=== PATIENT | female | born 1955 | race Caucasian/White ===

== ENCOUNTER → 2016-12-31 | Outpatient (CLI) | payer MEDICARE ==
[~2016-12-31] MED LIST: ALDACTONE25 M1 PO; ASPIRIN ADULT L81 M1 PO; COUMADIN1 M1 PO; COUMADIN2.5 M1 PO; DIGITEK0.125 MG PO; DUONEB 3 MG/3 ML3 M1 INH; IBUPROFEN600 MG PO; LISINOPRIL5 MG PO; OXYGEN NAS; SIMVASTATIN10 MG PO; TOPROL XL25 MG PO; UNASYN 3GM3 GM/100 M IV; XANAX0.25 MG PO; [UNRECOGNIZED DRUG - OTHER] IV
== END | disposition home or self-care (01) ==
LOC: LAB 15:40
DX: J44.9 Chronic obstructive pulmonary disease, unspecified (principal)

== ENCOUNTER → 2017-09-27 | Outpatient (CLI) | payer MEDICARE ==
[2017-09-27 10:35] LABS: CHOLESTEROL 178 mg/dL (<200); HDL CHOLESTEROL 65 mg/dl (40-60); LDL CHOLESTEROL 79 mg/dL (9-159); TRIGLYCERIDES 170 mg/dl (<150); VLDL CHOLESTEROL 34 mg/dL (6-40)
== END | disposition home or self-care (01) ==
LOC: LAB 09:35
PROVIDERS: Internal Medicine Cardiovascular Disease
DX: E78.5 Hyperlipidemia, unspecified (principal)

== ENCOUNTER 2017-11-09 14:03 | Inpatient (IN) | payer OTHER, MEDICARE ==
[~2017-11-09] VITALS: Ht 160 cm; Wt 55.5 kg
--- NOTE | ~2017-11-09 | PR ---
[place], [place] PROGRESS NOTE NAME: [facility] [id number] UNIT #: [id number] ROOM: [facility] DOCTOR: ASIM MON MD BIRTHDATE: [birth year] DOS: 11/15/2017 SUBJECTIVE: The patient examined in the Intensive Care Unit. The patient is on BiPAP. She appears to be comfortable. The patient is staying in sinus rhythm. No more atrial fibrillation at this point. They were not able to do any biopsy yesterday because of her significant orthopnea. OBJECTIVE: VITAL SIGNS: Blood pressure today is 129/50. HEENT: Unremarkable. NECK: Supple. Elevated JVD. LUNGS: Diminished breath sounds. She is not wheezing today. Extremely diminished air entry. HEART: Sounds are regular. ABDOMEN: Soft, nontender. REVIEW OF SYSTEMS: Not performed because of the critical nature of the patient. LABORATORY DATA: Shows hemoglobin 10, hematocrit 34.1. Sodium 139, potassium 4.2, creatinine is 0.5. INR is 1. IMPRESSION: Respiratory failure with possible lung mass, bronchopneumonia, septicemia, atrial fibrillation, paroxysmal back into sinus rhythm, severe cardiomyopathy with an ejection fraction of 25% with severe mitral regurgitation. RECOMMENDATIONS: Paroxysmal atrial fibrillation in sinus rhythm, severe LV dysfunction. 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 for about a couple of days and then change it to 200 daily. If she has recurrent AFib, we might have to anticoagulate. CHADS score is very high and we will follow up. ASIM MON MD CM:PNKARY [id number] ASIM MON MD 11/15/17 2246 interface
--- NOTE | ~2017-11-09 | CON ---
[place], [place] REPORT OF CONSULTATION NAME: ARIANE GARCIA [facility] #: [id number] UNIT #: [id number] ROOM: [facility] DOCTOR: ASIM MON MD BIRTHDATE: [birth year] DOS: 11/11/2017 Patient examined in the Intensive Care Unit. HISTORY OF PRESENT ILLNESS: A 62-year-old patient with chest discomfort and known history of coronary artery disease. A 62-year-old female who has been a patient of Dr. Navas for COPD, presented to the hospital for symptoms of having increased shortness of breath. The patient has a history of previous endocarditis. The patient went [facility], was sent to the Emergency Room for reassessment to assess shortness of breath and reported symptoms of nonspecific chest pain associated with chills, dizziness, and lightheadedness. The patient has been assessed. Denies symptoms of hemoptysis. The patient has a suspected acute pneumonia, admitted ____ in the Emergency Room, a CT scan of the chest was done, showed the patient reported with a finding of a lung mass. The patient was seen by Dr. Navas for the same for the patient. Symptoms started with a pain in the mouth and thought she has an infection of the mouth. REVIEW OF SYSTEMS: CONSTITUTIONAL: No fever, no chills. Complains of fatigue and tiredness. HEENT: No visual disturbances, hearing problems. CARDIOVASCULAR: Denies any chest discomfort. RESPIRATORY: Positive for shortness of breath. GENITOURINARY: No dysuria, hematuria. PAST MEDICAL HISTORY: End-stage chronic obstructive pulmonary disease, chronic respiratory failure, hypercholesterolemia, hypertension, congestive heart failure, cardiomyopathy, anxiety, and peripheral arterial disease. PAST SURGICAL HISTORY: Hip arthroscopy, cardiac catheterization, appendectomy, and fem-pop bypass surgery. SOCIAL HISTORY: The patient denies any alcohol abuse or drug abuse. No history of tobacco abuse, started at the age of [age] years old. FAMILY HISTORY: Positive for coronary artery disease. MEDICATIONS: Digoxin, simvastatin, Solu-Medrol, Rocephin, Zithromax and p.r.n. medication. DRUG ALLERGIES: None. PHYSICAL EXAMINATION: A 62-year-old patient in sinus rhythm. VITAL SIGNS: Blood pressure is 89/60. NECK: Supple, elevated JVD. LUNGS: Diminished breath sounds bilaterally with positive rhonchi and crackles. ABDOMEN: Soft, nontender. EXTREMITIES: About 1+ edema. NEUROLOGIC: Stable. LABORATORY DATA: Shows hemoglobin 9.8, hematocrit 33.8, sodium 143, potassium [place], [place] REPORT OF CONSULTATION NAME: ARIANE GARCIA UNIT #: [id number] ROOM: [facility] DOCTOR: ASIM MON MD BIRTHDATE: [birth year] 4.5, creatinine is 0.7. Chest, thorax CTA of the chest reveals no pulmonary embolism, development of a spiculated mass in the right lower lobe, compatible with a primary lung carcinoma. IMPRESSION: The patient with a history of cardiomyopathy, history of previous endocarditis with acute pneumonia and probable lung mass, hypoxic respiratory failure, and metabolic alkalosis. RECOMMENDATIONS: As per Pulmonology, monitor the heart rate and blood pressure closely. We will get an echocardiogram. Continue the plan as per Dr. Navas and we will follow up with you. ASIM MON MD CM:CONSTR:REPORT OF CONSULTATION 0720 11/11/17 0751 interface
--- NOTE | ~2017-11-09 | PR ---
[place], [place] PROGRESS NOTE NAME: ARIANE GARCIA [facility] #: [id number] UNIT #: [id number] ROOM: [facility] DOCTOR: BALBIR DHALIWAL MD,NEERU BIRTHDATE: [birth year] DOS: 11/11/2017 PULMONARY PROGRESS NOTE SUBJECTIVE: The patient was noted with respiratory distress this morning and quick hypoxia. The patient was taken off the BiPAP. The patient currently started back on the BiPAP. She has not been noted with symptoms of chest pain, awake, follows vocal commands, could not give any history, has been noted with symptoms of shortness of breath and nonproductive cough. There is no symptom wheezing or chest pain. The CT-guided needle aspirate biopsy of the right lower lobe nodule was currently placed on hold because the patient was taking Plavix. The biopsy will be done once the patient noted off Plavix for 5 days per Radiology Services. She has not been noted with any chest pain at the present time. She has developed tachycardia ____, later on started on the intravenous Cardizem drip with normal sinus rhythm noted. Heart rate maximum noted 140 beats per minute. The past family, social and surgical history all remains unchanged. OBJECTIVE: VITAL SIGNS: For the patient reviewed shows normal temperature, respiratory rate 18, heart rate of 105 with current normal sinus rhythm, mild tachycardia earlier noted 140 beats per minute. The blood pressure ranges between 132/70-114/45. The pulse oxygen saturation noted on the BiPAP 35% oxygen, later on required to be increased to 60%. The pulse ox saturation at this time are noted as 96% saturation. HEENT: Head was atraumatic. Eyes nonicterus. NECK: Supple. CARDIOVASCULAR: S1, S2 is audible. LUNGS: Noted general reduction of the breath sounds bilaterally. Scattered expiratory wheezing. ABDOMEN: Soft, nontender. Bowel sounds present. EXTREMITIES: Without any acute edema. MUSCULOSKELETAL: Without any acute deformities. LABORATORY DATA: CBC: WBC count 11.2 today, hemoglobin 9.8, platelet count normal. The BMP this morning; glucose 142, normal BUN and creatinine, CO2 40. Arterial blood gas; pH of 7.29, pCO2 70, pO2 217on 60% oxygen BiPAP. IMPRESSION: 1. The patient with worsening acute respiratory status with hypercapnia and decreased pH was noted at this time. 2. Right lower lobe pulmonary nodule. 3. Advanced chronic obstructive pulmonary disease was noted with FEV1 less than 20% previously. 4. Metabolic alkalosis secondary to chronic hypercarbia. 5. Tachycardia, with possibly to supraventricular tachycardia. PLAN OF MANAGEMENT: The BiPAP setting has been changed to the BiPAP pressure of 20/10. Also making changes in the inspiratory time. Tidal volume was noted as [place], [place] PROGRESS NOTE NAME: ARIANE GARCIA UNIT #: [id number] ROOM: [facility] DOCTOR: NEERU CABRERA MD BIRTHDATE: [birth year] about 556 mL with improvement in the minute ventilation. Currently, the BiPAP setting will be continued in the next 3 hours. Repeat arterial blood gases will be done after that. Additional treatment changes will be planned based on the progression of the illness, otherwise. Supportive care, other therapy, plan of management and treatments. Continue intensive care and monitoring the patient. NEERU MCGREGOR MD CM:PNTRANS [id number] [id number] NEERU DHALIWAL MD 11/12/17 0126 interface
--- NOTE | ~2017-11-09 | PR ---
[place], [place] PROGRESS NOTE [id number] UN[facility] #: [id number] ROOM: [facility] DOCTOR: ASIM MON MD BIRTHDATE: [birth year] DOS: 11/12/2017 SUBJECTIVE: A 24-hour events noted. Discussed with the nursing staff. The patient examined in the Intensive Care Unit. The patient had another episode of rapid atrial fibrillation like she did before. She is on the BiPAP. The patient was evaluated. Right now she is back into sinus rhythm to sinus tachycardia. She has significant shortness of breath and dyspnea on exertion. REVIEW OF SYSTEMS: Not possible because of the critical nature of the patient and on BiPAP. OBJECTIVE: VITAL SIGNS: Blood pressure is 109/49, sinus rhythm to sinus tachycardia. NECK: Supple, no JVD. LUNGS: Diminished air entry. HEART: Sounds are regular with an S3 and an S4. ABDOMEN: Soft, nontender. EXTREMITIES: No edema with extremely diminished pulsations. LABORATORY DATA: Shows a hemoglobin 10.7, hematocrit 36.4. Electrolytes: Sodium 139, potassium is 4.3, creatinine is 0.5. INR is 1. IMPRESSION AND PLAN: The patient with severe left ventricular dysfunction. Echo revealing an ejection fraction of 25% with severe mitral regurgitation. Septicemia, bronchopneumonia, probable lung mass, tachycardic episodes. Brief episodes of atrial fibrillation and cardiomyopathy. The patient to undergo a lung biopsy. The patient is a moderate to moderately high risk. Continue the present medications as ordered by antibiotics etc and continue the Cardizem drip. Condition is guarded. ASIM MON MD CM:PNTRANS [id number] ASIM MON MD 11/12/172140 interface
--- NOTE | ~2017-11-09 | CON ---
[place], [place] REPORT OF CONSULTATION NAME: [facility]: [id number] UNIT #: [id number] ROOM: [facility] DOCTOR: NEERU CABRERA MD BIRTHDATE: [birth year] DOS: 11/10/2017 PULMONARY CONSULTATION, EVALUATION, AND MANAGEMENT CONSULTATION REQUESTED BY: Hospitalist Service. REASON FOR CONSULTATION: Assessment of currently reported lung mass. HISTORY OF PRESENT ILLNESS: This is a 62-year-old white female who has been known to me and been treated in the office for COPD. The patient presented to the hospital for symptoms of having increased shortness of breath, which has been ongoing for about 24 hours. The patient went to the [facility] and was sent to the Emergency Room for further assessment to assess the current acute symptoms. The patient reported symptoms of nonspecific chest pain associated with chills, dizziness, and lightheadedness as well. She does have symptoms of coughing. The patient without any sputum expectoration. Denies symptoms of hemoptysis. The patient does have symptoms of wheezing. The patient has been assessed in the Emergency Room, suspected acute pneumonia, admitted to the hospital for further medical management. Later on, CT scan of the chest was also done for the patient that was reported with finding of lung mass. This morning, the patient was seen, she was comfortably sitting on the bed. The patient denies any symptoms of any chest pain. The patient denies symptoms of hemoptysis. The patient stated her symptoms started with actually pain in the mouth and thought she has infection in the mouth. REVIEW OF SYSTEMS: CONSTITUTIONAL: Fatigue and tiredness reported without symptoms of fever or chills. EYES: Denies any burning, redness, or tenderness. EARS, NOSE, THROAT SYMPTOMS: Denies sore throat, hoarseness, otalgia, postnasal drainage, or epistaxis. CARDIOVASCULAR SYSTEM: Denies anginal pain, edema of the lower extremity. GASTROINTESTINAL SYMPTOMS: No dysphagia, nausea, vomiting, diarrhea, abdominal pain, hematemesis, melena, or hematochezia. SKIN: Denies any abnormal lesions or any rashes. GENITOURINARY SYMPTOMS: Dysuria, suprapubic pain, hematuria. CENTRAL NERVOUS SYSTEM: No dizziness, headache, diplopia, syncopal episodes. Remaining systems were reviewed. They were noted all negative. PAST MEDICAL HISTORY: 1. End-stage COPD with FEV1 20% or less for this patient known to me. 2. Chronic hypoxic respiratory failure and acute type 2 diabetes mellitus. 3. Hypercholesterolemia. 4. Essential hypertension. 5. Congestive heart failure. 6. Cardiomyopathy. 7. General anxiety disorder. 8. Peripheral arterial disease. [place], [place] REPORT OF CONSULTATION NAME: ARIANE GARCIA UNIT #: [id number] ROOM: [facility] DOCTOR: BALBIR DHALIWAL MDNEERU BIRTHDATE: [birth year] PAST SURGICAL HISTORY: 1. D and C. 2. Cardiac catheterization. 3. Right hip arthroplasty. 4. Appendectomy. 5. Femoropopliteal bypass grafting. SOCIAL HISTORY: The patient is single, has 2 children. Denies history of alcohol use, illicit drug use. She has been known with history of tobacco use that was started at the age of [age] years old. A pack of cigarettes a day until 2015. 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 FAMILY HISTORY: The patient's father at 62 years with complication of COPD. The mother at 72 years with complication of acute stroke. MEDICATIONS: The current medication administered for the patient were noted as use of citalopram, vitamin D, Lovenox for DVT prophylaxis, Remeron, digoxin, simvastatin, Solu-Medrol 60 mg b.i.d., Dulera, DuoNeb, Rocephin, Zithromax and other p.r.n. medications. DRUG ALLERGIES: Noted as no known drug allergies. PHYSICAL EXAMINATION: GENERAL: This is a 62-year-old female who has been noted currently sitting comfortably on the bed without any distress, using oxygen supplementation, nasal cannula. Height of 5 feet 3 inches, weight 122 pounds, BMI 21.6. VITAL SIGNS: Which have been recorded of the patient shows the temperature noted normal, respiratory rate 24, heart rate 114 and 127, blood pressure 89/60, 113/62. The pulse oxygen saturation of the patient was recorded as 94% on 3 liter nasal cannula. HEENT: Head was atraumatic. Eyes nonicterus. NECK: Supple. CARDIOVASCULAR SYSTEM: S1, S2 is audible. LUNGS: The patient was noted without any crackles, rhonchi. Wheezing were noted moderately in the lungs bilaterally. ABDOMEN: Soft, nontender, bowel sounds present. EXTREMITIES: The patient was noted without any acute edema. SKIN: Visible skin, no lesions or rashes. MUSCULOSKELETAL SYMPTOMS: Without acute deformities. CENTRAL NERVOUS SYSTEM: Cranial nerves 2-12 intact. LABORATORY DATA: The patient's CBC on 11/09/2017, on admission, WBC count normal, hemoglobin 11.6, platelet count normal, hematocrit normal, PT/INR normal. CMP of the patient was noted on 11/09/2017, glucose 207, BUN normal, creatinine was normal. CO2 was 35. The arterial blood gas of the patient on 11/09/2017, noted pH of 7.27, pCO2 of 65, pO2 of 84.9 on 4 liter nasal cannula. The CMP of the patient that was done this morning, glucose 241, BUN and creatinine normal. CO2 35. PT, PTT repeated again that was normal. CBC this morning, hemoglobin 9.8, hematocrit 33.9, WBC count normal, platelet count were [place], [place] REPORT OF CONSULTATION NAME: ARIANE GARCIA UNIT #: [id number] ROOM: [facility] DOCTOR: BALBIR DHALIWAL MD,NEREU BIRTHDATE: [birth year] normal. The chest x-ray of the patient that was done yesterday morning noted the evidence of COPD changes with basilar area of infiltration suspected. CT of the chest that was done for the patient, I personally reviewed and showed spiculated lesion 2.7 x 1.7 cm size as compared to CT scan of 01/01/2015. Basilar area of atelectasis was noted. A small area of consolidation noted in the left lower lobe as well consistent with acute pneumonia. IMPRESSION: 1. The patient who has been noted with current acute on chronic hypercapnic hypoxic respiratory failure. 2. Acute pneumonia involving the left lower lobe. Nonaspiration would be considered. 3. The patient with advanced COPD, which has been known by history previously. No tobacco use. 4. New onset of pulmonary nodule, spiculated, with possible consideration for a lung malignancy very likely that had developed since 2014 CT scan of the chest assessment. 5. Metabolic alkalosis secondary to chronic hypercarbia. PLAN OF MANAGEMENT: At this time, the patient would be treated for the acute pneumonia management. The patient with the antibiotics as ordered. To collect the sputum for Gram stain and culture. The patient was ordered CT-guided needle aspiration biopsy of the right lower lobe pulmonary nodule. Monitor the culture results of the sputum as well. Bronchodilators to be continued as well. Other treatment plan of management for the patient based on progression of the illness. Continue the bronchodilator administration, ____ oxygen supplementation, BiPAP would be also used to stabilize the respiratory status as well. Other additional changes in the treatment could be done for the patient based on the progression of the illness. Repeat arterial blood gas in the morning for the patient to assess improvement in the ventilatory status as well. Changes in treatment continued to be made for the patient as needed. Usual care. All other additional treatment changes will be planned for this patient based on progression of illness. She does not smoke any cigarettes at this time. Improve the protein/calorie intake for this patient as well. Thanks for allowing me to participate in the care of this patient. [place], [place] REPORT OF CONSULTATION NAME: ARIANE GARCIA UNIT #: [id number] ROOM: [facility] DOCTOR: NEERU CABRERA MD BIRTHDATE: [birth year] NEREU MCGREGOR MD CM:CONSTR:REPORT OF CONSULTATION 1552 11/11/17 0209 interface
--- NOTE | ~2017-11-09 | PR ---
[place], [place] PROGRESS NOTE NAME: ARIANE GARCIA [facility] #: [id number] UNIT #: [id number] ROOM: [facility] DOCTOR: BALBIR DHALIWAL MD,NEERU BIRTHDATE: [birth year] DOS: 11/12/2017 PULMONARY PROGRESS NOTE SUBJECTIVE: She remains in Intensive Care Unit. The BiPAP changes done yesterday were noted quite effective. The patient improved her ventilatory status. She has not been noted symptoms of chest pain or hemoptysis. Cough has been noted at times without any sputum expectoration. The patient has not been reported symptoms of abdominal pain, nausea, or vomiting. She has not been reported any pain of the lower extremities. General weakness and fatigue were reported. Remaining systems were reviewed and they were noted all negative. One of the sons of the patient was present in room with the patient. PHYSICAL EXAMINATION: VITAL SIGNS: Vital signs of the patient, temperature noted normal, respirations 18-20, heart rate of 90-76, and blood pressure 109/39-120/52. Pulse oxygen saturation recorded on 40% oxygen was 96% saturation. HEENT: On examination, head was atraumatic. Eyes, nonicterus. CARDIOVASCULAR: S1, S2 audible. LUNGS: Generally diminished breath sounds bilaterally, scattered expiratory wheezing. ABDOMEN: Soft, nontender. EXTREMITIES: Without acute edema. VISIBLE SKIN: No lesions. No rashes. MUSCULOSKELETAL: Without acute deformities. CENTRAL NERVOUS SYSTEM: The patient was noted gross examination as nonfocal. LABORATORY DATA: CBC today: WBC count 11.8, hemoglobin 10.9, hematocrit 36.4, platelet count 320,000, and 95% segmented neutrophils. BMP today, glucose 241, BUN 71, creatinine normal, and CO2 of 36. The arterial blood gas yesterday afternoon, pH of 7.36, pCO2 of 66, and pO2 of 94. Blood culture, no bacterial growth from 11/09/2017. IMPRESSION: 1. The patient with end-stage chronic obstructive pulmonary disease, which was noted quite advanced. 2. Chronic hypoxic respiratory failure. 3. Acute on chronic hypercapnic and hypoxic respiratory failure. 4. Severe debility as well. 5. The patient with right lobe pulmonary nodule, strong suspicion for primary lung malignancy was considered. 6. History of peripheral vascular disease and other medical illnesses. PLAN OF MANAGEMENT: The patient will be continued on current dose of corticosteroids, bronchodilators, oxygen supplementation, and the BiPAP. He does not require to be intubated. Bronchodilator to be continued. DVT prophylaxis to be continued. All other supportive therapy, plan of management, and care. Dose of Solu-Medrol will be gradually decreased, currently change from 30 mg to 40 mg b.i.d. dosing. The further assessment and management with current potential malignancy with end-stage COPD and limited management, which [place], [place] PROGRESS NOTE NAME: ARIANE GARCIA UNIT #: [id number] ROOM: [facility] DOCTOR: BALBIR DHALIWAL MD,NEERU BIRTHDATE: [birth year] was nonsurgical were discussed with the patient in detail. The possibility of pneumothorax, which occurs 40% at times and sometimes requiring further intervention such as chest tube placement has been discussed with the patient's son as well. He will discuss these options and the risks and benefits of the current further assessment with her mother. Once the patient and the family members make an informed decision; certainly, biopsy could be done of the lung after that. In the meantime, continue other supportive therapy, plan of management, and care plan as previously in progress. She was also noted with atrial flutter and fibrillation. The patient's tachycardia was treated with Cardizem drip. The patient has been assessed by the Cardiology Services with continuation of the Cardizem drip was advised. The past, family, social, and surgical remains unchanged since current hospitalization as already noted in my previous consultation. NEERU MCGREGOR MD CM:PNTRANS 1540 [id number] NEERU DHALIWAL MD 11/13/17 0046 interface
--- NOTE | ~2017-11-09 | PR ---
[place], [place] PROGRESS NOTE NAME: ARIANE GARCIA [facility] #: [id number] UNIT #: [id number] ROOM: [facility] DOCTOR: BALBIR DHALIWAL MD,NEERU BIRTHDATE: [birth year] DOS: 11/15/2017 SUBJECTIVE: The patient has been noted comfortable at this time, this morning, sitting on the chair, using oxygen supplementation on nasal cannula. Reduction of the distress noted. The mental status is noted better this morning. She has not been noted any symptoms of chest pain. Denies symptoms of hemoptysis or chest pain. Denies any edema of the lower extremity. Oral intake for the patient noted decreased. Denies symptoms of nausea, vomiting, diarrhea, abdominal pain. General weakness and fatigue was reported. Remaining systems were reviewed, they were noted all negative. OBJECTIVE: VITAL SIGNS: For the patient which has been recorded showed the temperature noted as normal. The respiratory rate of the patient recorded as 21, heart rate of 91, blood pressure 141/51-118/39. The pulse oxygen saturation of the patient recorded as 96% with the BiPAP 5 liters cannula at rest was 96% saturation this morning. HEENT: Examination shows head was atraumatic. Eyes nonicterus. NECK: Supple. CARDIOVASCULAR: S1, S2 audible. LUNGS: Noted without any wheezing or crackles at present time. ABDOMEN: Soft, nontender. EXTREMITIES: Without any acute edema. MUSCULOSKELETAL: Without acute deformities. CENTRAL NERVOUS SYSTEM: Nonfocal. VISIBLE SKIN: No lesions or rashes. LABORATORY DATA: CBC today: WBC count normal, hemoglobin 10.1, hematocrit 34.7, platelet count normal. BMP this morning, glucose 292. Normal BUN and creatinine. CO2 of 39. IMPRESSION: 1. Acute on chronic severe acute hypercapnic hypoxic respiratory failure, currently responding to the treatment. 2. Debility secondary to current acute exacerbation as well. 3. Right lower lobe pulmonary nodule, suspected malignancy. 4. Severe debility secondary to current medical illness. PLAN OF MANAGEMENT: Continuation of the bronchodilator with oxygen supplementation. The Solu-Medrol dose will be continued 40 mg b.i.d. at this time. ____ would be given for the patient BiPAP intermittent during the day. Continue BiPAP at nighttime for medical management hypercapnic hypoxic respiratory failure. No change in antibiotics. Bedside physical therapy could be done. [place], [place] PROGRESS NOTE NAME: ARIANE GARCIA UNIT #: [id number] ROOM: [facility] DOCTOR: BALBIR DHALIWAL MD,NEERU BIRTHDATE: [birth year] NEERU MCGREGOR MD CM:PNTRANS [phone] NEERU DHALIWAL MD 11/16/17 1026 interface
--- NOTE | ~2017-11-09 | PR ---
[place], [place] PROGRESS NOTE NAME: ARIANE GARCIA UNIT #: [id number] ROOM: 402 DOCTOR: JONATHAN LOZANO MD BIRTHDATE: [birth year] DOS: 11/16/2017 SUBJECTIVE: This patient has oxygen by mask and high flow oxygen is being supplied. She is mildly tachypneic. She is alert, but tired and no chills or fever. She does not have any palpitations. PHYSICAL EXAMINATION GENERAL: This is a patient who is alert, oriented, somewhat ____ lethargic. VITAL SIGNS: Pulse is regular at 80 beats per minute, blood pressure 170/65. NECK: JVP is normal. LUNGS: Breath sounds are moderately diminished, but hardly any adventitious sounds are present. LABORATORY DATA: Fluid balance for the last 24 hours is -1.4 liters. Monitor shows normal sinus rhythm. IMPRESSION: 1. This patient remains in normal sinus rhythm and is on amiodarone 200 b.i.d. This should be continued indefinitely unless there are some issues with his medication. 2. Respiratory failure is improving. 3. She had some bleeding issues and is to undergo some procedure, for that Eliquis/anticoagulant coagulated can be held as necessary. JONATHAN LOZANO MD CM:PNTRANS [phone] JONATHAN LOZANO MD 11/16/171909 interface
--- NOTE | ~2017-11-09 | PR ---
[place], [place] PROGRESS NOTE NAME: ARIANE GARCIA [facility] #: [id number] UNIT #: [id number] ROOM: [facility] DOCTOR: BALBIR DHALIWAL MD,NEERU BIRTHDATE: [birth year] DOS: 11/14/2017 SUBJECTIVE: The patient was seen and examined by 11/14/2017. She remained dependent, mostly on the BiPAP. Lack of the BiPAP the patient resulting in hypoxia and increased respiratory distress. The patient advanced directives were not to intubate, the patient has only treated with the BiPAP or other treatments. She was also planned for CT-guided needle aspiration biopsy for the patient right lower lobe pulmonary nodule. The biopsy was not done, the patient noted tachycardia and inability to stay on the table to perform the procedure. The patient was sent back to the ICU after the assessment, which was done by ____. The patient has been currently using the BiPAP, but noted that she was given the Ativan early and appeared to be sedated. She could not give me any review system because of that. Several family members present in the room with the patient today as the patient was examined. OBJECTIVE: VITAL SIGNS: For the patient recorded normal temperature, respiratory rate 21-18, heart rate of 115-83 with mild sinus tachycardia. The tachycardia noted yesterday with heart rate of 174 beats per minute at 11:25 a.m. The blood pressure ranges between 109/44-131/61, pulse oxygen saturation was recorded as a 95% saturation on 30% oxygen. HEENT: Examination shows head was atraumatic. Eyes nonicterus. CARDIOVASCULAR: S1, S2 audible. LUNGS: Noted with decreased breath sounds in the lungs bilaterally. ABDOMEN: Soft, flat, nontender. EXTREMITIES: The patient without edema. SKIN: No lesions or rashes. CENTRAL NERVOUS SYSTEM: Currently change in mental status, but has not been reported any focal neurologic deficit, previous general weakness was reported. MUSCULOSKELETAL: Without any gross deformities. LABORATORY DATA: The patient's CBC today: WBC count normal, hemoglobin 10.4, platelet count normal 300,000. BMP this morning, BUN 20, creatinine was normal, glucose 269, CO2 of 38. IMPRESSION: 1. The patient advanced end-stage chronic obstructive pulmonary disease, currently treated for acute on chronic hypercapnic and hypoxic respiratory failure. 2. The patient right lower lobe pulmonary nodule, suspected for malignant process. 3. Overall severe debility. The patient remains persistent. 4. Dependent of the BiPAP at this time. PLAN OF TREATMENT: Continuation of the current plan of care at this time. Limited options of medical management will be available for the patient. Condition remains the same. The patient will be appropriate to get the hospice assessment for the patient if agreed upon by the patient and other family members. Continuation of other present plan of treatment, steroids, bronchodilators, BiPAP and other therapies. [place], [place] PROGRESS NOTE NAME: GARCIAARIANE Ronda UNIT #: [id number] ROOM: [facility] DOCTOR: NEERU CABRERA MD BIRTHDATE: [birth year] NEERU MCGREGOR MD CM:YASHIRA [phone] NEERU DHALIWAL MD 11/15/17 0651 interface
--- NOTE | ~2017-11-09 | PR ---
[place], [place] PROGRESS NOTE [facility] [id number] UNIT #: [id number] ROOM: [facility] DOCTOR: JONATHAN LOZANO MD BIRTHDATE: [birth year] DOS: 11/14/2017 SUBJECTIVE: She is on BiPAP and is fairly comfortable, although mildly tachypneic. She has no palpitations. She had been in atrial fibrillation on and off and IV Cardizem was discontinued because she was in sinus rhythm and was started on a very small 30 mg p.o. preparation b.i.d. She has no chest pain or any cough or palpitations. OBJECTIVE: GENERAL: She seems tired. She is not diaphoretic. VITAL SIGNS: Temperature is normal, pulse is 76 and regular, blood pressure 129/55. NECK: JVP is normal. LUNGS: Breath sounds are diminished with adventitious sounds bilaterally. EXTREMITIES: No edema in the lower extremities. LABORATORY DATA: Monitor shows normal sinus rhythm. IMPRESSION: 1. Paroxysmal atrial fibrillation, now that she is in sinus rhythm, it is probably a good idea to put her on amiodarone [address] Mathews can decide regarding duration of this therapy when he sees her tomorrow. JONATHAN LOZANO MD CM:PNTRANS [phone] JONATHAN LOZANO MD 11/14/172155 interface
--- NOTE | ~2017-11-09 | PR ---
[place], [place] PROGRESS NOTE [id number] #: [id number] ROOM: 402 DOCTOR: BALBIR DHALIWAL MD,NEERU BIRTHDATE: [birth year] DOS: 11/17/2017 PULMONARY FOLLOWUP SUBJECTIVE: She has been sitting on the chair this morning, transferred from the intensive care yesterday, noted with limited ambulation, but it has been improving gradually. There were symptoms of chest pain or any abdominal pain. OBJECTIVE: VITAL SIGNS: Normal temperature, respiratory rate 20, heart rate 67, blood pressure 130-48. Pulse oxygen saturation recorded on 3 liters 95% saturation. HEENT: Head was atraumatic. Eyes nonicterus. NECK: Supple. CARDIOVASCULAR: S1, S2 is audible. LUNGS: Noted without any wheeze or crackles at the present time. ABDOMEN: Soft, nontender. Bowel sounds present. EXTREMITIES: Without any acute edema. IMPRESSION: 1. Resolving acute on chronic severe hypercapnic and hypoxic respiratory failure with acute exacerbation of chronic obstructive pulmonary disease. 2. History of right lower lobe pulmonary nodule. PLAN OF MANAGEMENT: The patient could be discharged to the half-way facility for rehabilitation. Outpatient assessment should be established by the patient to discuss the pulmonary nodule. Further workup for this patient as an outpatient. In the meantime, continue other supportive plan of management and care plan. NEERU MCGREGOR MD CM:PNTRANS [phone] NEERU DHALIAWL MD 11/17/17 1449 interface
--- NOTE | ~2017-11-09 | PR ---
[place], [place] PROGRESS NOTE NAME: ARIANE GARCIA UNIT #: [id number] ROOM: [facility] DOCTOR: NEERU CABRERA MD BIRTHDATE: [birth year] DOS: 11/13/2017 SUBJECTIVE: The patient was comfortable, continued using the BiPAP this morning without any acute distress. The patient has not noted symptoms of chest pain. Shortness of breath, the patient has been improving. There were no symptoms of hemoptysis. She was scheduled for needle aspiration biopsy of the right lower lobe nodule, suspected as malignant nodule, tomorrow. The patient was made well aware of all the risks and the complications, benefits associated with the procedure and further assessment. The son was also made aware of it yesterday as well. She was agreeable for the procedure to be done tomorrow. OBJECTIVE: VITAL SIGNS: Vital signs of the patient which has been recorded showed the temperature noted normal, respiratory rate 20, heart rate 97, blood pressure 147/61. The pulse oxygen saturation on 40% oxygen, 95% saturation with the BiPAP. HEENT: Head was atraumatic. Eye nonicterus. NECK: Supple. CARDIOVASCULAR SYSTEM: S1, S2 is audible. LUNGS: Noted with general reduction in breath sounds bilaterally. ABDOMEN: Soft, nontender. EXTREMITIES: Without any acute edema. LABORATORY DATA: CBC today: WBC count was normal, hemoglobin 10.2, platelet count was normal. The BMP of the patient that was done: Glucose 337, BUN and creatinine were normal. CO2 of 38. IMPRESSION: 1. The patient with resolving degree of chronic hypercapnia and hypoxic respiratory failure. 2. History of advanced COPD as well. 3. Stable metabolic alkalosis, right lower lobe nodule. 4. Hyperglycemia secondary to corticosteroids. PLAN OF TREATMENT: Continue Solu-Medrol 40 mg b.i.d. at this time. Continue bronchodilators, oxygen supplementation and other plan. No change in the treatment will be needed today. [place], [place] PROGRESS NOTE NAME: ARIANE GARCIA UNIT #: [id number] ROOM: [facility] DOCTOR: NEERU CABRERA MD BIRTHDATE: [birth year] NEERU MCGREGOR MD CM:PNKARY [phone] NEERU DHALIWAL MD 11/13/17 2318 interface
--- NOTE | ~2017-11-09 | PR ---
[place], [place] PROGRESS NOTE [id number] UNIT #: [id number] ROOM: 402 DOCTOR: BALBIR DHALIWAL MD,NEERU BIRTHDATE: [birth year] DOS: 11/16/2017 PULMONARY PROGRESS NOTE SUBJECTIVE: The patient noted comfortable at this time, resting and sitting on the chair this morning in the Intensive Care Unit. She has not been reported any symptoms of chest pain or hemoptysis. Mental status has been noted significantly improved. The oxygen requirement has been decreased. OBJECTIVE: VITAL SIGNS: For the patient, which has been recorded showed the temperature noted as normal. Respiratory rate of 18, heart rate 93, blood pressure 114/55. Pulse oxygen saturation on 3 liters nasal cannula is 90-95% saturation. HEENT: Head was atraumatic. Eyes nonicterus. NECK: Supple. CARDIOVASCULAR: S1, S2 is audible. LUNGS: Without any wheezing or crackles. ABDOMEN: Soft, nontender, bowel sounds present. EXTREMITIES: Noted without any acute edema. IMPRESSION: 1. The patient with the left lower lung pulmonary nodule with resolving severe acute hypercapnic hypoxic respiratory failure progressively. 2. Severe debility. PLAN OF TREATMENT: The patient could be transferred to the telemetry floor. She has been asked about the needle aspiration biopsy at this time. The patient stated that she will discuss with family members to make a decision. The biopsy, most likely would need to be done as an outpatient. However, for that, an outpatient assessment to be scheduled in the office to discuss further pros and cons for the biopsy. NEERU MCGREGOR MD CM:PNTRANS [phone] NEERU DHALIWAL MD 11/17/17 0233 interface
[~2017-11-09 14:03] MED LIST changes: -DIGITEK0.125 MG PO; +DIGITEK250 MCG PO
[2017-11-09 14:09] VITALS: BP 104/58
[2017-11-09 15:01] LABS: BASO % 0.3 % (0.0-1.0); EOS # 0.1 10*3/uL (0.0-0.4); EOS % 0.6 % (1.0-4.0); HEMOGLOBIN 11.6 g/dl (12.0-16.0); LYMPH # 0.6 10*3/uL (1.3-4.4); LYMPH % 6.2 % (27.0-41.0); MEAN CELL VOLUME 93.8 fl (81.0-99.0); MEAN CORPUSCULAR HGB 27.9 pg (27.0-31.0); MEAN CORPUSCULAR HGB CONC 29.7 g/dl (33.0-37.0); MEAN PLATELET VOLUME 10.5 fl (9.6-12.3); MONO # 0.3 10*3/uL (0.1-1.0); MONO % 2.8 % (3.0-9.0); NEUT # 9.1 10*3/uL (2.3-7.9); NEUT % 89.6 % (47.0-73.0); PLATELET COUNT AUTOMATED 364 10*3/uL (130-400); RED BLOOD COUNT 4.16 10*6/uL (4.10-5.10); RED CELL DISTRI WIDTH 13.6 % (0-14.5); WHITE BLOOD COUNT 10.2 10*3/uL (4.8-10.8)
[2017-11-09 15:20] LABS: ALBUMIN 3.5 gm/dl (3.1-4.5); ALKALINE PHOSPHATASE 146 U/L (45-117); BUN 9 mg/dl (7-24); CHLORIDE 97 mmol/L (98-107); CREATININE 0.73 mg/dL (0.55-1.02); LIPASE 78 U/L (73-393); SGOT/AST 18 IU/L (3-35); SGPT/ALT 28 U/L (12-78); SODIUM 139 mmol/L (136-145); TOTAL PROTEIN 8.1 gm/dL (6.4-8.2); TROPONIN I 0.018 ng/ml (<0.045)
[2017-11-09 17:41] LABS: ABG BASE EXCESS 1.4 mmol/L (-2.0-2.0); ABG HCO3 28.8 mmol/l (22-26); ABG O2 SATURATION 95.2 % (95-97); ARTERIAL BLOOD GAS PCO2 65.5 mmHg (35-45); ARTERIAL BLOOD GAS PH 7.27 (7.35-7.45); ARTERIAL BLOOD GAS PO2 84.9 mmHg (80-90)
[2017-11-09] MEDS ORDERED: CLOPIDOGREL75 MG PO (18:09)
[2017-11-09] MEDS ORDERED: VITAMIN D-32000 UNI1 PO (18:10)
[2017-11-09 18:51] VITALS: BP 119/68
[2017-11-09 19:32] VITALS: BP 119/77
[2017-11-09] MEDS ORDERED: CITALOPRAM40 MG PO (19:38)
[2017-11-09] MEDS ORDERED: VITAMIN B121000 MC1 PO (19:39)
[2017-11-09] MEDS ORDERED: METFORMIN HCL500 MG PO (19:40)
[2017-11-09] MEDS ORDERED: MIRTAZAPINE15 M1 PO (19:48)
[2017-11-09] MEDS ORDERED: INCRUSE ELLI62.5 MCG INH (19:51)
[2017-11-09] MEDS ORDERED: BREO ELLIPTA 11 EACH INH (19:51)
[2017-11-10] VITALS: BP 138/81
[2017-11-10 04:00] VITALS: BP 89/60
[2017-11-10 06:09] LABS: ALBUMIN 3.1 gm/dl (3.1-4.5); ALKALINE PHOSPHATASE 120 U/L (45-117); BUN 7 mg/dl (7-24); CHLORIDE 100 mmol/L (98-107); CREATININE 0.66 mg/dL (0.55-1.02); PHOSPHOROUS 2.7 mg/dL (2.5-4.9); POTASSIUM 4.3 mmol/L (3.5-5.1); SGOT/AST 18 IU/L (3-35); SGPT/ALT 27 U/L (12-78); SODIUM 140 mmol/L (136-145); TOTAL PROTEIN 6.8 gm/dL (6.4-8.2)
[2017-11-10 06:34] LABS: HEMATOCRIT 33.9 % (37.0-47.0); HEMOGLOBIN 9.8 g/dl (12.0-16.0); MEAN CELL VOLUME 94.2 fl (81.0-99.0); MEAN CORPUSCULAR HGB 27.2 pg (27.0-31.0); MEAN CORPUSCULAR HGB CONC 28.9 g/dl (33.0-37.0); MEAN PLATELET VOLUME 10.9 fl (9.6-12.3); PLATELET COUNT AUTOMATED 328 10*3/uL (130-400); RED CELL DISTRI WIDTH 13.4 % (0-14.5)
[2017-11-10 07:07] LABS: ACT PARTIAL THROMBO TIME 22.6 SECONDS (20.8-31.5)
[2017-11-10 08:00] VITALS: BP 95/54
[2017-11-10 08:24] LABS: PLATELET SUFFICIENCY NORMAL (NORMAL); TOTAL CELLS COUNTED 100 #CELLS
[2017-11-10 12:00] VITALS: BP 113/62
[2017-11-10 16:00] VITALS: BP 107/47
[2017-11-10 20:00] VITALS: BP 114/45
[2017-11-11] VITALS (11 sets, daily range): BP systolic 99–133; BP diastolic 39–72
[2017-11-11 06:41] LABS: HEMATOCRIT 33.8 % (37.0-47.0); HEMOGLOBIN 9.8 g/dl (12.0-16.0); MEAN CELL VOLUME 95.5 fl (81.0-99.0); MEAN CORPUSCULAR HGB 27.7 pg (27.0-31.0); MEAN PLATELET VOLUME 10.7 fl (9.6-12.3); PLATELET COUNT AUTOMATED 318 10*3/uL (130-400); RED BLOOD COUNT 3.54 10*6/uL (4.10-5.10); RED CELL DISTRI WIDTH 13.7 % (0-14.5); WHITE BLOOD COUNT 11.1 10*3/uL (4.8-10.8)
[2017-11-11 06:58] LABS: BUN 12 mg/dl (7-24); CHLORIDE 98 mmol/L (98-107); POTASSIUM 4.5 mmol/L (3.5-5.1); SODIUM 143 mmol/L (136-145)
[2017-11-11 07:01] LABS: CREATININE 0.67 mg/dL (0.55-1.02)
[2017-11-11 07:05] LABS: PLATELET SUFFICIENCY NORMAL (NORMAL); POLYCHROMASIA SLIGHT; TOTAL CELLS COUNTED 100 #CELLS
[2017-11-11 07:57] LABS: ABG BASE EXCESS 5.4 mmol/L (-2.0-2.0); ABG HCO3 33.4 mmol/l (22-26); ABG O2 SATURATION 99.7 % (95-97); ARTERIAL BLOOD GAS PH 7.291 (7.35-7.45)
[2017-11-11 08:00] LABS: ARTERIAL BLOOD GAS PCO2 70.8 mmHg (35-45)
[2017-11-11 15:35] LABS: ABG BASE EXCESS 9.8 mmol/L (-2.0-2.0); ABG HCO3 37.1 mmol/l (22-26); ABG O2 SATURATION 97.8 % (95-97); ARTERIAL BLOOD GAS PH 7.363 (7.35-7.45); ARTERIAL BLOOD GAS PO2 94.8 mmHg (80-90)
[2017-11-12] VITALS (12 sets, daily range): BP systolic 104–152; BP diastolic 29–86
[2017-11-12 05:43] LABS: BUN 17 mg/dl (7-24); CHLORIDE 96 mmol/L (98-107); POTASSIUM 4.3 mmol/L (3.5-5.1); SODIUM 139 mmol/L (136-145)
[2017-11-12 05:48] LABS: HEMATOCRIT 36.4 % (37.0-47.0); HEMOGLOBIN 10.7 g/dl (12.0-16.0); MEAN CELL VOLUME 93.3 fl (81.0-99.0); MEAN CORPUSCULAR HGB 27.4 pg (27.0-31.0); MEAN CORPUSCULAR HGB CONC 29.4 g/dl (33.0-37.0); MEAN PLATELET VOLUME 10.9 fl (9.6-12.3); PLATELET COUNT AUTOMATED 320 10*3/uL (130-400); RED CELL DISTRI WIDTH 13.8 % (0-14.5); WHITE BLOOD COUNT 11.8 10*3/uL (4.8-10.8)
[2017-11-12 07:00] LABS: TOTAL CELLS COUNTED 100 #CELLS
[2017-11-12 07:01] LABS: PLATELET SUFFICIENCY NORMAL (NORMAL)
[2017-11-13] VITALS (13 sets, daily range): BP systolic 109–147; BP diastolic 40–61
[2017-11-13 05:40] LABS: BUN 23 mg/dl (7-24); CHLORIDE 97 mmol/L (98-107); CREATININE 0.62 mg/dL (0.55-1.02); PHOSPHOROUS 3.5 mg/dL (2.5-4.9); POTASSIUM 4.4 mmol/L (3.5-5.1); SODIUM 140 mmol/L (136-145)
[2017-11-13 05:50] LABS: HEMATOCRIT 35.8 % (37.0-47.0); HEMOGLOBIN 10.2 g/dl (12.0-16.0); MEAN CELL VOLUME 94.7 fl (81.0-99.0); MEAN CORPUSCULAR HGB CONC 28.5 g/dl (33.0-37.0); MEAN PLATELET VOLUME 10.9 fl (9.6-12.3); PLATELET COUNT AUTOMATED 301 10*3/uL (130-400); RED BLOOD COUNT 3.78 10*6/uL (4.10-5.10); RED CELL DISTRI WIDTH 13.6 % (0-14.5); WHITE BLOOD COUNT 7.5 10*3/uL (4.8-10.8)
[2017-11-13 06:32] LABS: PLATELET SUFFICIENCY NORMAL (NORMAL); POLYCHROMASIA SLIGHT; TOTAL CELLS COUNTED 100 #CELLS
[2017-11-14] VITALS (11 sets, daily range): BP systolic 104–129; BP diastolic 44–58
[2017-11-14 06:12] LABS: HEMATOCRIT 35.7 % (37.0-47.0); HEMOGLOBIN 10.4 g/dl (12.0-16.0); MEAN CELL VOLUME 93.7 fl (81.0-99.0); MEAN CORPUSCULAR HGB 27.3 pg (27.0-31.0); MEAN CORPUSCULAR HGB CONC 29.1 g/dl (33.0-37.0); MEAN PLATELET VOLUME 10.4 fl (9.6-12.3); PLATELET COUNT AUTOMATED 300 10*3/uL (130-400); RED BLOOD COUNT 3.81 10*6/uL (4.10-5.10); RED CELL DISTRI WIDTH 13.4 % (0-14.5); WHITE BLOOD COUNT 8.2 10*3/uL (4.8-10.8)
[2017-11-14 06:48] LABS: CHLORIDE 95 mmol/L (98-107); POTASSIUM 4.3 mmol/L (3.5-5.1); SODIUM 139 mmol/L (136-145)
[2017-11-14 06:54] LABS: BUN 20 mg/dl (7-24); CREATININE 0.44 mg/dL (0.55-1.02); PHOSPHOROUS 3.4 mg/dL (2.5-4.9)
[2017-11-14 07:12] LABS: PLATELET SUFFICIENCY NORMAL (NORMAL); STOMATOCYTE FEW; TOTAL CELLS COUNTED 100 #CELLS
[2017-11-15] VITALS: BP 132/36
[2017-11-15 04:00] VITALS: BP 118/39
[2017-11-15 06:02] LABS: HEMATOCRIT 34.7 % (37.0-47.0); HEMOGLOBIN 10.1 g/dl (12.0-16.0); MEAN CORPUSCULAR HGB 27.4 pg (27.0-31.0); MEAN CORPUSCULAR HGB CONC 29.1 g/dl (33.0-37.0); MEAN PLATELET VOLUME 10.9 fl (9.6-12.3); PLATELET COUNT AUTOMATED 277 10*3/uL (130-400); RED BLOOD COUNT 3.69 10*6/uL (4.10-5.10); RED CELL DISTRI WIDTH 13.2 % (0-14.5); WHITE BLOOD COUNT 8.3 10*3/uL (4.8-10.8)
[2017-11-15 06:19] LABS: BUN 14 mg/dl (7-24); CHLORIDE 94 mmol/L (98-107); CREATININE 0.57 mg/dL (0.55-1.02); POTASSIUM 4.3 mmol/L (3.5-5.1); SODIUM 139 mmol/L (136-145)
[2017-11-15 06:56] LABS: TOTAL CELLS COUNTED 100 #CELLS
[2017-11-15 06:57] LABS: PLATELET SUFFICIENCY NORMAL (NORMAL)
[2017-11-15 08:00] VITALS: BP 121/53
[2017-11-15 11:54] VITALS: BP 141/50
[2017-11-15 20:00] VITALS: BP 120/38
[2017-11-16] VITALS: BP 103/51
[2017-11-16 04:00] VITALS: BP 117/65
[2017-11-16 05:42] LABS: BUN 14 mg/dl (7-24); CHLORIDE 96 mmol/L (98-107); CREATININE 0.54 mg/dL (0.55-1.02); POTASSIUM 4.4 mmol/L (3.5-5.1); SODIUM 140 mmol/L (136-145)
[2017-11-16 05:53] LABS: HEMATOCRIT 35.6 % (37.0-47.0); HEMOGLOBIN 10.4 g/dl (12.0-16.0); MEAN CELL VOLUME 93.7 fl (81.0-99.0); MEAN CORPUSCULAR HGB 27.4 pg (27.0-31.0); MEAN CORPUSCULAR HGB CONC 29.2 g/dl (33.0-37.0); MEAN PLATELET VOLUME 11.3 fl (9.6-12.3); PLATELET COUNT AUTOMATED 275 10*3/uL (130-400); RED CELL DISTRI WIDTH 13.5 % (0-14.5); WHITE BLOOD COUNT 7.1 10*3/uL (4.8-10.8)
[2017-11-16 06:54] LABS: PLATELET SUFFICIENCY NORMAL (NORMAL); STOMATOCYTE FEW; TOTAL CELLS COUNTED 100 #CELLS
[2017-11-16 08:00] VITALS: BP 123/65
[2017-11-16 12:00] VITALS: BP 114/55
[2017-11-16 16:00] VITALS: BP 126/81
[2017-11-16 20:00] VITALS: BP 136/54
[2017-11-17] VITALS: BP 132/65
[2017-11-17 07:14] LABS: HEMOGLOBIN 10.2 g/dl (12.0-16.0); MEAN CELL VOLUME 93.1 fl (81.0-99.0); MEAN CORPUSCULAR HGB 27.1 pg (27.0-31.0); MEAN CORPUSCULAR HGB CONC 29.1 g/dl (33.0-37.0); MEAN PLATELET VOLUME 11.4 fl (9.6-12.3); PLATELET COUNT AUTOMATED 257 10*3/uL (130-400); RED BLOOD COUNT 3.76 10*6/uL (4.10-5.10); RED CELL DISTRI WIDTH 13.4 % (0-14.5); WHITE BLOOD COUNT 7.2 10*3/uL (4.8-10.8)
[2017-11-17 07:28] LABS: BUN 17 mg/dl (7-24); CHLORIDE 94 mmol/L (98-107); CREATININE 0.57 mg/dL (0.55-1.02); POTASSIUM 4.8 mmol/L (3.5-5.1); SODIUM 138 mmol/L (136-145)
[2017-11-17 07:47] LABS: PLATELET SUFFICIENCY NORMAL (NORMAL); TOTAL CELLS COUNTED 100 #CELLS
[2017-11-17 08:00] VITALS: BP 130/43
[2017-11-17] MEDS ORDERED: ELIQUIS5 M1 PO (11:50)
[2017-11-17] MEDS ORDERED: PREDNISONE10 MG PO (11:50)
[2017-11-17] MEDS ORDERED: AMIODARONE HCL200 MG PO ×2 (11:50→11:51)
[2017-11-17] MEDS ORDERED: DILTIAZEM HCL60 MG PO (11:50)
[2017-11-17] MEDS ORDERED: ASPIR LOW81 MG PO (11:50)
[2017-11-17 12:00] VITALS: BP 132/48
== END 2017-11-17 14:50 | disposition other institution (70) | DRG 871 ==
LOC: ED 14:03 → ICCU 16:23 → EDHOLD 16:23 → 5E 17:07 → ICCU 17:51 → 4E 11-16 11:00
PROVIDERS: Family Medicine; Internal Medicine; Internal Medicine Critical Care Medicine; Internal Medicine Nephrology; Physician Assistant
PROC: 5A09357 Assistance with Respiratory Ventilation, Less than 24 Consecutive Hours, Continuous Positive Airway Pressure (ICD-10-PCS; principal; 2017-11-11)
PROC: 5A09357 Assistance with Respiratory Ventilation, Less than 24 Consecutive Hours, Continuous Positive Airway Pressure (ICD-10-PCS; 2017-11-13)
PROC: 5A09357 Assistance with Respiratory Ventilation, Less than 24 Consecutive Hours, Continuous Positive Airway Pressure (ICD-10-PCS; 2017-11-14)
PROC: 5A09357 Assistance with Respiratory Ventilation, Less than 24 Consecutive Hours, Continuous Positive Airway Pressure (ICD-10-PCS; 2017-11-15)
PROC: 5A09357 Assistance with Respiratory Ventilation, Less than 24 Consecutive Hours, Continuous Positive Airway Pressure (ICD-10-PCS; 2017-11-16)
DX: A41.9 Sepsis, unspecified organism (principal); J18.0 Bronchopneumonia, unspecified organism; J96.21 Acute and chronic respiratory failure with hypoxia; E87.2 Acidosis; E87.8 Other disorders of electrolyte and fluid balance, not elsewhere classified; E44.0 Moderate protein-calorie malnutrition; J96.22 Acute and chronic respiratory failure with hypercapnia; I50.42 Chronic combined systolic (congestive) and diastolic (congestive) heart failure; J44.1 Chronic obstructive pulmonary disease with (acute) exacerbation; I48.92 Unspecified atrial flutter; E78.00 Pure hypercholesterolemia, unspecified; R65.20 Severe sepsis without septic shock; R07.9 Chest pain, unspecified; I73.9 Peripheral vascular disease, unspecified; D64.9 Anemia, unspecified; D72.810 Lymphocytopenia; R73.9 Hyperglycemia, unspecified; R91.1 Solitary pulmonary nodule; I48.0 Paroxysmal atrial fibrillation; I34.0 Nonrheumatic mitral (valve) insufficiency; B33.24 Viral cardiomyopathy; Z96.641 Presence of right artificial hip joint; T38.0X5A Adverse effect of glucocorticoids and synthetic analogues, initial encounter; Y92.89 Other specified places as the place of occurrence of the external cause; Z90.49 Acquired absence of other specified parts of digestive tract; Z87.891 Personal history of nicotine dependence; Z95.820 Peripheral vascular angioplasty status with implants and grafts; Z79.02 Long term (current) use of antithrombotics/antiplatelets; Z79.51 Long term (current) use of inhaled steroids; Z79.82 Long term (current) use of aspirin; Z79.899 Other long term (current) drug therapy; Z82.5 Family history of asthma and other chronic lower respiratory diseases; Z82.49 Family history of ischemic heart disease and other diseases of the circulatory system; Z82.3 Family history of stroke

== ENCOUNTER → 2017-12-13 | Outpatient (CLI) | payer MEDICARE ==
[~2017-12-13] MED LIST changes: +AMIODARONE HCL200 MG PO; +ASPIR LOW81 MG PO; +BREO ELLIPTA 11 EACH INH; +CITALOPRAM40 MG PO; +CLOPIDOGREL75 MG PO; +DILTIAZEM HCL60 MG PO; +ELIQUIS5 M1 PO; +INCRUSE ELLI62.5 MCG INH; +METFORMIN HCL500 MG PO; +MIRTAZAPINE15 M1 PO; +PLAVIX75 M1 PO; +PREDNISONE10 MG PO; +VITAMIN B121000 MC1 PO; +VITAMIN D-32000 UNI1 PO
--- NOTE | ~2017-12-13 | ST ---
[place], [place] EXERCISE STRESS TEST REPORT NAME: [facility] [id number] UNIT #: [id number] ROOM: DOCTOR: ASIM MON MD BIRTHDATE: [birth year] DOS: 12/13/2017 LEXISCAN PORTION OF THE LEXISCAN CARDIOLITE Baseline cardiogram, sinus with a left ventricular hypertrophy with mild ST depressions in the inferior leads, 0.4 mg of Lexiscan, duration of 10 seconds. The patient after 1 minute total test duration there is persistence of ST depression in the inferior leads. The patient has LVH by voltage criteria, did have some shortness of breath, but the patient has an underlying hypoxemia, oxygen dependent. No chest pain. Positive for chest heaviness. Blood pressure responses normal. FINAL IMPRESSION: Indeterminate test secondary to the underlying ST depressions and left ventricular hypertrophy. No new EKG changes. Blood pressure and heart rate response was normal. Positive chest tightness. Nuclear images will be reported separately. ASIM MON MD CM:STRESS:EXERCISE STRESS TEST REPORT [id number] ASIM MON MD
== END | disposition home or self-care (01) ==
LOC: CARD 04:00
DX: Z01.810 Encounter for preprocedural cardiovascular examination (principal); R06.89 Other abnormalities of breathing; I38 Endocarditis, valve unspecified; I51.7 Cardiomegaly

== ENCOUNTER 2018-05-12 14:35 | Inpatient (IN) | payer MEDICARE, OTHER ==
[~2018-05-12] VITALS: Ht 160 cm; Wt 49.6 kg
--- NOTE | ~2018-05-12 | EKG ---
[place], [place] ELECTROCARDIOGRAM REPORT NAME: ARIANE GARCIA UNIT #: [id number] ROOM: [facility] DOCTOR: SASHA DRAFT REPORT BIRTHDATE: [birth year] [facility] Test Date: 2018-05-12 Test Time: 15:04:52 Pat Name: ARIANE GARCIA Department: Room: [facility] Gender: F Candy Dipper: 19 : 1955 Requested By: SANGEETHA RINCON Order Number: [id number] Reading MD: Merline Condon MD Measurements Intervals [place] Rate: 81 P: 89 PA: 178 QRS: 86 QRSD: 111 T: -83 QT: 348 QTc: 404 Interpretive Statements Sinus rhythm Borderline right axis deviation LVH with secondary repolarization abnormality ST depr, consider ischemia, inferior leads Electronically Signed On 05-15-2018 6:31:02 PST by Merline Condon MD CM:EKGRPT:ELECTROCARDIOGRAM REPORT [id number] SANGEETHA RINCON EPIPHANY DRAFT REPORT SANGEETHA RINCON
--- NOTE | ~2018-05-12 | EKG ---
[place], [place] ELECTROCARDIOGRAM REPORT NAME: ARIANE GARCIA UNIT #: [id number] ROOM: [facility] DOCTOR: SASHA DRAFT REPORT BIRTHDATE: [birth year] [facility] Test Date: 2018-05-13 Test Time: 09:31:03 Pat Name: ARIANE GARCIA Department: Room: [place] [address] Gender: F Health Information Clerk: Denita Maciel : 1955 Requested By: LAURA MALCOLM Order Number: [id number] Reading MD: Merline Condon MD Measurements Intervals [place] Rate: 77 P: 89 AL: 185 QRS: 88 QRSD: 108 T: 268 QT: 352 QTc: 399 Interpretive Statements Sinus rhythm Borderline right axis deviation LVH with secondary repolarization abnormality ST depression, consider ischemia, diffuse lds Electronically Signed On 05-15-2018 7:29:58 PST by Merline Condon MD CM:EKGRPT:ELECTROCARDIOGRAM REPORT 0729 LAURA DEL CID DRAFT REPORT LAURA MALCOLM DO
[~2018-05-12 14:35] MED LIST changes: -ACETAZOLAMIDE250 MG PO; -AMIODARONE HYD200 MG PO; -DILTIAZEM60 MG PO; -LEADER ASPIRIN81 MG PO; -PROVENTIL HFA6.7 GM INH
[2018-05-12 14:38] VITALS: BP 96/46
[2018-05-12 14:56] LABS: BASO # 0.1 10*3/uL (0.0-0.1); BASO % 0.5 % (0.0-1.0); EOS # 0.1 10*3/uL (0.0-0.4); EOS % 0.9 % (1.0-4.0); HEMATOCRIT 43.3 % (37.0-47.0); LYMPH # 0.7 10*3/uL (1.3-4.4); LYMPH % 7.7 % (27.0-41.0); MEAN CELL VOLUME 93.1 fl (81.0-99.0); MEAN PLATELET VOLUME 10.7 fl (9.6-12.3); MONO # 0.4 10*3/uL (0.1-1.0); MONO % 4.6 % (3.0-9.0); NEUT # 8.1 10*3/uL (2.3-7.9); NEUT % 84.8 % (47.0-73.0); PLATELET COUNT AUTOMATED 277 10*3/uL (130-400); RED BLOOD COUNT 4.65 10*6/uL (4.10-5.10); RED CELL DISTRI WIDTH 13.7 % (0-14.5); WHITE BLOOD COUNT 9.6 10*3/uL (4.8-10.8)
[2018-05-12 15:13] LABS: ALBUMIN 3.6 gm/dl (3.1-4.5); ALKALINE PHOSPHATASE 164 U/L (45-117); BUN 12 mg/dl (7-24); CHLORIDE 100 mmol/L (98-107); CREATININE 0.67 mg/dL (0.55-1.02); POTASSIUM 4.1 mmol/L (3.5-5.1); SGOT/AST 65 IU/L (3-35); SGPT/ALT 88 U/L (12-78); SODIUM 139 mmol/L (136-145); TOTAL PROTEIN 7.7 gm/dL (6.4-8.2)
[2018-05-12 15:14] LABS: ACT PARTIAL THROMBO TIME 26.5 SECONDS (20.8-31.5)
[2018-05-12 15:17] LABS: TROPONIN I < 0.015 ng/ml (<0.045)
[2018-05-12 15:24] LABS: DIGOXIN 1.99 ng/ml (0.8-2.0)
[2018-05-12 15:40] VITALS: BP 124/52
[2018-05-12 16:11] VITALS: BP 136/58
[2018-05-12 16:20] VITALS: BP 136/58
[2018-05-12 16:35] VITALS: BP 130/44
[2018-05-12] MEDS ORDERED: ACETAZOLAMIDE250 MG PO (16:45)
[2018-05-12] MEDS ORDERED: LEADER ASPIRIN81 MG PO (16:50)
[2018-05-12] MEDS ORDERED: ELIQUIS5 M1 PO (16:52)
[2018-05-12] MEDS ORDERED: DILTIAZEM60 MG PO (16:56)
[2018-05-12] MEDS ORDERED: PROVENTIL HFA6.7 GM INH (17:03)
[2018-05-12 19:29] LABS: BUN 12 mg/dl (7-24); CHLORIDE 103 mmol/L (98-107); CREATININE 0.57 mg/dL (0.55-1.02); POTASSIUM 4.6 mmol/L (3.5-5.1); SODIUM 141 mmol/L (136-145)
[2018-05-12 19:44] LABS: DIGOXIN 2.06 ng/ml (0.8-2.0)
[2018-05-12 20:00] VITALS: BP 156/38
[2018-05-13] VITALS: BP 132/50
[2018-05-13 00:05] LABS: BUN 10 mg/dl (7-24); CHLORIDE 103 mmol/L (98-107); POTASSIUM 3.9 mmol/L (3.5-5.1); SODIUM 140 mmol/L (136-145)
[2018-05-13 00:15] LABS: DIGOXIN 1.75 ng/ml (0.8-2.0)
[2018-05-13 04:00] VITALS: BP 138/39
[2018-05-13 05:58] LABS: BUN 10 mg/dl (7-24); CHLORIDE 103 mmol/L (98-107); CREATININE 0.66 mg/dL (0.55-1.02); PHOSPHOROUS 3.8 mg/dL (2.5-4.9); POTASSIUM 4.5 mmol/L (3.5-5.1); SODIUM 143 mmol/L (136-145)
[2018-05-13 06:01] LABS: BASO # 0.1 10*3/uL (0.0-0.1); BASO % 0.9 % (0.0-1.0); EOS # 0.3 10*3/uL (0.0-0.4); EOS % 3.9 % (1.0-4.0); HEMOGLOBIN 11.5 g/dl (12.0-16.0); LYMPH % 13.6 % (27.0-41.0); MEAN CELL VOLUME 94.2 fl (81.0-99.0); MEAN CORPUSCULAR HGB 27.8 pg (27.0-31.0); MEAN CORPUSCULAR HGB CONC 29.5 g/dl (33.0-37.0); MEAN PLATELET VOLUME 11.3 fl (9.6-12.3); MONO # 0.7 10*3/uL (0.1-1.0); NEUT # 5.4 10*3/uL (2.3-7.9); NEUT % 70.9 % (47.0-73.0); PLATELET COUNT AUTOMATED 251 10*3/uL (130-400); RED BLOOD COUNT 4.14 10*6/uL (4.10-5.10); RED CELL DISTRI WIDTH 13.7 % (0-14.5); WHITE BLOOD COUNT 7.7 10*3/uL (4.8-10.8)
[2018-05-13 06:11] LABS: HEPATITIS B SURFACE AG Negative (Negative); HEPATITIS C VIRUS ANTIBODY <0.1 s/co (0.0-0.9)
[2018-05-13 06:33] LABS: DIGOXIN 2.28 ng/ml (0.8-2.0)
[2018-05-13 08:00] VITALS: BP 113/35
[2018-05-13 12:00] VITALS: BP 129/38
[2018-05-13 16:00] VITALS: BP 122/32
[2018-05-13 20:00] VITALS: BP 130/44
[2018-05-13] MEDS ORDERED: AMIODARONE HYD200 MG PO (20:10)
[2018-05-14] VITALS: BP 146/50
[2018-05-14 04:00] VITALS: BP 148/45
[2018-05-14 05:55] LABS: BASO # 0.1 10*3/uL (0.0-0.1); BASO % 0.9 % (0.0-1.0); EOS # 0.4 10*3/uL (0.0-0.4); EOS % 5.5 % (1.0-4.0); HEMATOCRIT 38.2 % (37.0-47.0); HEMOGLOBIN 11.2 g/dl (12.0-16.0); LYMPH # 1.3 10*3/uL (1.3-4.4); LYMPH % 16.7 % (27.0-41.0); MEAN CELL VOLUME 94.3 fl (81.0-99.0); MEAN CORPUSCULAR HGB 27.7 pg (27.0-31.0); MEAN CORPUSCULAR HGB CONC 29.3 g/dl (33.0-37.0); MEAN PLATELET VOLUME 11.4 fl (9.6-12.3); MONO # 0.7 10*3/uL (0.1-1.0); MONO % 9.5 % (3.0-9.0); NEUT # 5.1 10*3/uL (2.3-7.9); NEUT % 65.9 % (47.0-73.0); PLATELET COUNT AUTOMATED 251 10*3/uL (130-400); RED BLOOD COUNT 4.05 10*6/uL (4.10-5.10); RED CELL DISTRI WIDTH 13.6 % (0-14.5); WHITE BLOOD COUNT 7.8 10*3/uL (4.8-10.8)
[2018-05-14 06:15] LABS: BUN 9 mg/dl (7-24); CHLORIDE 99 mmol/L (98-107); CREATININE 0.54 mg/dL (0.55-1.02); POTASSIUM 4.3 mmol/L (3.5-5.1); SODIUM 141 mmol/L (136-145)
[2018-05-14 06:24] LABS: DIGOXIN 1.34 ng/ml (0.8-2.0)
[2018-05-14 08:00] VITALS: BP 133/52
== END 2018-05-14 11:20 | disposition home or self-care (01) | DRG 918 ==
LOC: ED 14:35 → ICCU 15:55 → EDHOLD 15:55 → ICCU 16:07
PROVIDERS: Internal Medicine; Nurse Practitioner Family; Student in an Organized Health Care Education/Training Program
DX: T46.0X1A Poisoning by cardiac-stimulant glycosides and drugs of similar action, accidental (unintentional), initial encounter (principal); J96.10 Chronic respiratory failure, unspecified whether with hypoxia or hypercapnia; E87.2 Acidosis; I50.42 Chronic combined systolic (congestive) and diastolic (congestive) heart failure; I42.9 Cardiomyopathy, unspecified; I34.0 Nonrheumatic mitral (valve) insufficiency; Z96.641 Presence of right artificial hip joint; R73.9 Hyperglycemia, unspecified; I73.9 Peripheral vascular disease, unspecified; R74.0 Nonspecific elevation of levels of transaminase and lactic acid dehydrogenase [LDH]; J44.9 Chronic obstructive pulmonary disease, unspecified; I48.0 Paroxysmal atrial fibrillation; Y92.89 Other specified places as the place of occurrence of the external cause; Z90.49 Acquired absence of other specified parts of digestive tract; Z87.891 Personal history of nicotine dependence; Z82.5 Family history of asthma and other chronic lower respiratory diseases; Z82.49 Family history of ischemic heart disease and other diseases of the circulatory system; Z82.3 Family history of stroke; Z83.3 Family history of diabetes mellitus; Z79.899 Other long term (current) drug therapy; Z79.82 Long term (current) use of aspirin; Z79.02 Long term (current) use of antithrombotics/antiplatelets

== ENCOUNTER → 2018-05-12 | Outpatient (CLI) | payer OTHER ==
[~2018-05-12] MED LIST changes: +ACETAZOLAMIDE250 MG PO; +AMIODARONE HYD200 MG PO; +DILTIAZEM60 MG PO; +GLUCOPHAGE500 M1 PO; +LEADER ASPIRIN81 MG PO; -METFORMIN HCL500 MG PO; +PROVENTIL HFA6.7 GM INH; -SIMVASTATIN10 MG PO; +SIMVASTATIN40 MG PO
== END | disposition home or self-care (01) ==
LOC: LAB 12:15
DX: I42.9 Cardiomyopathy, unspecified (principal)

== ENCOUNTER 2018-07-22 14:17 | Emergency (ER) | payer MEDICARE ==
[~2018-07-22 14:17] MED LIST changes: +ACETAZOLAMIDE250 MG PO; +AMIODARONE HYD200 MG PO; +DILTIAZEM60 MG PO; +LEADER ASPIRIN81 MG PO; +PROVENTIL HFA6.7 GM INH
== END 2018-07-22 14:31 | disposition expired ==
LOC: ED 14:17
DX: I46.9 Cardiac arrest, cause unspecified (principal); I50.40 Unspecified combined systolic (congestive) and diastolic (congestive) heart failure; I48.0 Paroxysmal atrial fibrillation; J44.9 Chronic obstructive pulmonary disease, unspecified; Z79.899 Other long term (current) drug therapy; Z79.82 Long term (current) use of aspirin; Z87.891 Personal history of nicotine dependence